=== PATIENT | female | born 1995 | race American Indian/Alaskan Native ===

== ENCOUNTER 2020-02-18 16:39 | Emergency (ER) | payer BC ==
--- NOTE | 2020-02-19 13:58 | ER ---
REASON FOR EMERGENCY ROOM VISIT: Lightheadedness and diarrhea. HISTORY: This 25-year-old woman comes in with a 1-day history of intermittent lightheadedness and dizziness since last evening. She took her blood sugar at that time, and it was 47. She states that she has had a history of hypoglycemia in the past. Through the course of the day today, her lightheadedness persisted. She felt somewhat weak and a bit shaky. She rechecked her blood sugar, and it was 85 earlier this afternoon. She has had 3 or 4 loose stools today and some nausea but no vomiting. She denies any fever or chills. She denies any headache. She does have occasional cough which is chronic, and she attributes this to smoking. PAST MEDICAL HISTORY: 1. History of hypertension, currently not being treated as her blood pressure has been normal. 2. Ethel tooth extraction. 3. Anxiety and depression. MEDICATIONS: 1. Oral contraceptives. 2. Paxil. 3. Omeprazole. ALLERGIES: NONE TO MEDICATIONS. REVIEW OF SYSTEMS: Pertinent positives and negatives as listed in the HPI. PHYSICAL EXAMINATION: VITALS: As noted in her EMR. GENERAL: She is awake and alert and in no acute distress. She states she feels better at this time. HEENT: Head is normocephalic. No scleral icterus. Oropharynx is normal. TMs are normal. NECK: Supple. No adenopathy. CHEST: Clear to auscultation with good air exchange bilaterally. CARDIAC: Regular rate without murmur. ABDOMEN: Nondistended. Bowel sounds are normal. Soft, nontender. No palpable masses. EXTREMITIES: Normal pulses. No edema. No cyanosis. SKIN: No rashes. LABORATORY DATA: Her EKG is within normal limits. A CBC was within normal limits. The urinalysis is normal. Her CMP did show that she has a mild hypokalemia but no other significant abnormalities. Her potassium is 3.3. IMPRESSION: Dizziness with nausea and diarrhea, most likely viral gastroenteritis. PLAN: I recommended clear liquids and emphasized things like apricot juice, bananas, orange juice, etc. in light of her hypokalemia. I advised her against taking anything to slow the diarrhea, and she states it is not that bad anyway. I feel that most likely this is a viral- type infection and supportive measures should be all that is necessary at this point in time. She understands. All questions were answered. She agrees with this plan. PAIGE/LARA /[id number]
== END 2020-02-18 18:20 | disposition home or self-care (01) ==
LOC: LB.ED 16:39
DX: R42 Dizziness and giddiness (principal); R11.0 Nausea; R19.7 Diarrhea, unspecified; E87.6 Hypokalemia; F41.9 Anxiety disorder, unspecified; F32.9 Major depressive disorder, single episode, unspecified; Z79.899 Other long term (current) drug therapy
CPT/HCPCS: 36415; 80053; 81001; 81025; 85025; 93005; 99282; 99284-25